=== PATIENT | male | born 1960 | race Caucasian/White ===

== ENCOUNTER 2018-08-14 17:11 | Emergency (ER) | payer BC, OTHER ==
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
[2018-08-14 18:40] VITALS: BP 123/73
== END 2018-08-14 18:20 | disposition home or self-care (01) ==
LOC: MW.ED 17:11
DX: S16.1XXA Strain of muscle, fascia and tendon at neck level, initial encounter (principal); Z79.899 Other long term (current) drug therapy; V59.49XA Driver of pick-up truck or van injured in collision with other motor vehicles in traffic accident, initial encounter
CPT/HCPCS: 72040; 72040-26; 93005; 99283; 99283-25